=== PATIENT | female | born 1950 | race Caucasian/White ===

== ENCOUNTER 2017-04-10 10:11 | Inpatient (IN) ==
[2017-04-06 19:31] LABS: Appearance,Urine CLEAR; Bacteria,Urine 0 /hpf (0); Bilirubin,Urine NEG (NEG); Color,Urine YELLOW; Glucose,Urine (UA) NEGATIVE (NEG); Leukocyte Esterase,Urine 75 /uL (NEG); Mucus,Urine FEW /hpf (0); Nitrate,Urine NEG (NEG); Protein,Urine NEG (NEG); Specific Gravity,Urine 1.018 (1.000-1.035); Urine Blood 0.03 mg/dL (<0.03); Urine RBC 4 /hpf (0-1); Urine Squamous Epithelial Cell < 1 /hpf (0-4); Urine Transitional Epi Cells < 1 /hpf (0-2); Urine WBC 11 /hpf (0-4)
[2017-04-06 19:51] LABS: Blood Urea Nitrogen 21 mg/dl (8-23)
[2017-04-06 20:04] LABS: Basophils # (Auto) 0 K/mcL (0.0-0.3); Basophils % (Auto) 0.4 % (0.0-2.0); Eosinophils # (Auto) 0.3 K/mcL (0.0-0.7); Granulocytes % (Auto) 59.9 % (38.0-78.0); Lymphocytes # (Auto) 2.1 K/mcL (1.5-4.8); Lymphocytes % (Auto) 27.4 % (15.5-49.0); Mean Cell Volume 92.7 fL (80.0-100.0); Mean Corpuscular HGB Conc 34.5 g/dL (31.0-36.0); Monocytes # (Auto) 0.6 K/mcL (0.1-0.9); Monocytes % (Auto) 8.3 % (1.0-12.0); Platelet Count 341 K/mcL (140-440); RBC 4.39 M/mcL (4.00-5.20); Red Cell Distribution Width 12.3 % (11.5-14.5)
[~2017-04-10 10:11] MED LIST: ACETAMINOPHEN 500 MG TABLET PO SCH; CELECOXIB 200 MG CAPSULE PO SCH; PREGABALIN 75 MG CAPSULE PO SCH; ceFAZolin 1 GM VIAL IV SCH; oxyCODONE 10 MG TAB.ER.12H PO SCH
[2017-04-10 11:18] LABS: Appearance,Urine HAZY; Bilirubin,Urine NEG (NEG); Color,Urine YELLOW; Glucose,Urine (UA) NEGATIVE (NEG); Leukocyte Esterase,Urine NEG /uL (NEG); Nitrate,Urine NEG (NEG); Protein,Urine NEG (NEG); Specific Gravity,Urine 1.014 (1.000-1.035); Urine Blood NEG mg/dL (<0.03); Urobilinogen,Urine NEG (NEG)
[2017-04-10] MEDS ORDERED: LACTATED RINGERS 1,000 ML IV SCH (13:30)
[2017-04-10] MEDS ORDERED: BENZOCAINE/MENTHOL 1 LOZENGE PO PRN ×2 (13:30→14:17)
[2017-04-10] MEDS ORDERED: PROMETHAZINE 25 MG/ML VIAL IV PRN (13:30)
[2017-04-10] MEDS ORDERED: ONDANSETRON 4 MG/2 ML VIAL IV PRN ×2 (13:30→14:17)
[2017-04-10] MEDS ORDERED: fentaNYL 100 MCG/2 ML VIAL IV PRN (13:30)
[2017-04-10] MEDS ORDERED: METHOCARBAMOL 1,000 MG/10 ML VIAL IV PRN (13:30)
[2017-04-10] MEDS ORDERED: LACTATED RINGERS 250 ML IV PRN (13:30)
[2017-04-10] MEDS ORDERED: IPRATROPIUM/ALBUTEROL 3 ML AMPUL.NEB NEB PRN (13:30)
[2017-04-10] MEDS ORDERED: FLUMAZENIL 0.1 MG/ML ML IV PRN (13:30)
[2017-04-10] MEDS ORDERED: NALOXONE HCL 0.4 MG/ML VIAL IV PRN (13:30)
[2017-04-10] MEDS ORDERED: ACETAMINOPHEN 900 MG/90 ML BOTTLE IV ONE (13:30)
[2017-04-10] MEDS ORDERED: MEPERIDINE 25 MG/ML SYRINGE IV PRN (13:30)
[2017-04-10] MEDS ORDERED: GENTAMICIN SULFATE 800 MG/20 ML VIAL IR ONE (13:34)
--- NOTE | 2017-04-10 14:13 | Brief Operative Note ---
Date of procedure: 04/10/17 Pre-op diagnosis: left shoulder rca Post-op diagnosis: same Procedure: left reverse tsa and bicep tenodesis Grafts/Implants: Yes Anesthesia: GETA Complications: none Complications Description: 04/10/17 14:12 none Surgeon: Shant Corado Logistics Team Leader: Vishal Levin Estimated blood loss (cc): 20 Specimens Removed/Pathology: none sent Condition: stable Disposition: PACU
[2017-04-10] MEDS ORDERED: FLEETS ADULT ENEMA PR PRN (14:17)
[2017-04-10] MEDS ORDERED: BISACODYL 10 MG SUPP.RECT PR PRN (14:17)
[2017-04-10] MEDS ORDERED: ACETAMINOPHEN 325 MG TABLET PO PRN (14:17)
[2017-04-10] MEDS ORDERED: POLYETHYLENE GLYCOL 3350 17 GM PACKET PO PRN (14:17)
[2017-04-10] MEDS ORDERED: MAGNESIUM HYDROXIDE 30 ML ORAL.SUSP PO PRN (14:17)
[2017-04-10] MEDS ORDERED: oxyCODONE/APAP 5/325MG TABLET PO PRN (14:17)
[2017-04-10] MEDS ORDERED: KETOROLAC 15 MG/ML VIAL IV PRN (14:17)
[2017-04-10] MEDS ORDERED: TRANEXAMIC ACID 1,000 MG/10 ML VIAL IV SCH (14:17)
[2017-04-10] MEDS ORDERED: HYDROmorphone 2 MG/ML SYRINGE IV PRN (14:17)
[2017-04-10] MEDS ORDERED: BACLOFEN 10 MG TABLET PO PRN (14:20)
[2017-04-10] MEDS ORDERED: traMADol 50 MG TABLET PO PRN (14:20)
--- NOTE | 2017-04-10 15:02 | Operative Note ---
DATE OF OPERATION: 04/10/2017 PREOPERATIVE DIAGNOSIS: Left shoulder rotator cuff arthropathy. POSTOPERATIVE DIAGNOSES: Left shoulder rotator cuff arthropathy with the addition of biceps tendinopathy. PROCEDURE: Left reverse total shoulder with biceps tenodesis. SURGEON: Shant Corado M.D. ACCOUNTS RECEIVABLE ASSOCIATE: Vishal Levin PA-C. ANESTHESIA: General LMA anesthesia. COMPLICATIONS: None. FINDINGS: Large rotator cuff tear with some advanced arthritis. DESCRIPTION OF PROCEDURE: The patient was brought to the operating room and put to sleep with general LMA anesthesia. Once asleep, the patient had the left arm sterilely prepped and draped in the usual sterile fashion. Once this was done, we then had a time out, confirmed the operative site, placed Ioban over the skin, preop antibiotics and tranexamic acid given. Once this was done, we then made a deltopectoral approach to the shoulder and then exposed the anterior capsule. Once the retractor had been placed and we preserved the cephalic vein laterally, we released the subscap and biceps tendon. The biceps tendon was tenodesed to the pectoralis major with two [id number] FiberWire stitches. The subscap was released and moved medially. We dislocated the humeral head and performed a capsular release around the humeral side to about the 7 o'clock position. Then the glenoid neck cut was made at 30 degrees retroversion at the surgical neck region. Once this was done, we irrigated thoroughly, subluxed the head posteriorly and then performed a 360 degree capsular release and the biceps fully released inside the joint. We placed a pin centrally in the glenoid with 10 degrees of inclination. This was reamed to a size 32, a very small glenoid. Once reamed, some bleeding bone about 50% of the inferior surface was bleeding. We then placed one screw centrally, predrilling this, and this was a 28 mm central screw with a metaglene. A 32 mm glenosphere was put into place after locking the metaglene into place with a 32, 24, and 32 other additional locking screws. The 32 mm, 2 mm offset glenosphere was placed and locked into place. We irrigated thoroughly. We then prepared the humerus. This was reamed up to size 11. An 11 stem was placed. We trialed the components, a standard and 6 mm poly. The 6 was the best tension and range of motion without impingement. We irrigated thoroughly. We placed the poly, reduced this, very stable through range of motion. We did not repair the subscap because of impingement and tightness with elevation of the arm. We irrigated thoroughly and then closed the deltopectoral interval with 2-0 Vicryl, closed the skin with 2-0 Vicryl and adhesive closure. Sterile bandage applied. A Donjoy sling was fitted and given. No complications. RBDaija:bryan Job ID: [id number] Doc ID: [id number] Shant Corado MD
[2017-04-10] MEDS ORDERED: FLUMAZENIL 0.1 MG/ML ML IV ONE (15:41)
--- NOTE | 2017-04-10 15:54 | XRay Report ---
CLINICAL INFORMATION: Postsurgical follow-up TECHNIQUE: AP and Y views of the left shoulder COMPARISON: Preoperative evaluation dated 11/06/2012 FINDINGS: Previous left reverse shoulder arthroplasty. Alignment is anatomic. IMPRESSION: Status post left reverse shoulder arthroplasty Interpreted and Authenticated by: Benjamin Robb 04/10/17
[2017-04-10] MEDS: 0.45 % SODIUM CHLORIDE 1,000 ML IV SCH (16:25)
[2017-04-10] MEDS ORDERED: TRANEXAMIC ACID 1,000 MG/10 ML VIAL IV ONE (17:39)
[2017-04-10] MEDS ORDERED: DEXAMETHASONE 10 MG/ML VIAL IV ONE (17:39)
[2017-04-10] MEDS ORDERED: LIDOCAINE HCL/PF 100 MG/5 ML SYRINGE IV ONE (17:39)
[2017-04-10] MEDS ORDERED: PROPOFOL 200 MG/20 ML VIAL IV ONE (17:39)
[2017-04-10] MEDS ORDERED: ONDANSETRON 4 MG/2 ML VIAL IV ONE (17:39)
[2017-04-10] MEDS ORDERED: fentaNYL 250 MCG/5 ML VIAL IV ONE (17:39)
[2017-04-10] MEDS ORDERED: KETAMINE 100 MG/ML ML IV ONE (17:39)
[2017-04-10] MEDS ORDERED: SUCCINYLCHOLINE 20 MG/ML ML IV ONE (17:39)
[2017-04-10] MEDS ORDERED: METOPROLOL TARTRATE 5 MG/5 ML VIAL IV ONE (17:39)
[2017-04-10] MEDS ORDERED: MIDAZOLAM 2 MG/2 ML VIAL IV ONE (17:39)
[2017-04-10] MEDS ORDERED: QUEtiapine 25 MG TABLET PO SCH (21:00)
[2017-04-10] MEDS ORDERED: TEMAZEPAM 15 MG CAPSULE PO PRN (21:00)
[2017-04-10] MEDS ORDERED: DULoxetine 30 MG CAPSULE PO SCH (21:00)
[2017-04-10] MEDS ORDERED: MULTIVIT,THER IRON,CA,FA & MIN 1 TABLET PO SCH (21:00)
[2017-04-10] MEDS ORDERED: VITAMIN D3 5,000 UNIT CAPSULE PO SCH (21:00)
[2017-04-10] MEDS ORDERED: NORTRIPTYLINE 10 MG CAPSULE PO SCH (21:00)
[2017-04-10] MEDS ORDERED: VITAMIN B COMPLEX 1 CAPSULE PO SCH (21:00)
[2017-04-10] MEDS ORDERED: SENNOSIDES 1 TABLET PO SCH (21:00)
[2017-04-10] MEDS: 0.9 % SODIUM CHLORIDE 10 ML SYRINGE IV SCH (21:30)
[2017-04-10] MEDS: ceFAZolin 1 GM VIAL IV SCH (21:30)
[2017-04-10] MEDS: DOCUSATE SODIUM 100 MG CAPSULE PO SCH (22:54)
[2017-04-11] MEDS: 0.45 % SODIUM CHLORIDE 1,000 ML IV SCH ×2 (01:11→10:29)
[2017-04-11] MEDS: 0.9 % SODIUM CHLORIDE 10 ML SYRINGE IV SCH ×2 (05:09→14:50)
[2017-04-11] MEDS: ceFAZolin 1 GM VIAL IV SCH (05:10)
--- NOTE | 2017-04-11 07:49 | Orthopedic Progress Note ---
Subjective Patient information: Note initiated : 04/11/17 at 7:47 am Service Date, if different from initiated Date: [] Patient: Beth Pennington 67 y/o F admitted on 04/10/17 for Left Reverse Total Shoulder Arthroplasty. Chief Complaint: [Pt is stable this morning on post operative day 1 without any significant concerns or complaints. Patients vital signs have remained stable. Patients dressing is dry and is still completely numb from shoulder block. Patients 10 point ROS is otherwise negative. ] Objective Vital signs: Vital Signs Temp Pulse Resp BP Pulse Ox 04/11/17 07:16 96.9 F L 14 109/70 96 04/11/17 03:15 97.7 F 70 12 112/72 98 04/11/17 01:58 17 98 04/10/17 23:34 97.5 F 75 14 113/70 97 04/10/17 22:20 96 04/10/17 20:00 97 04/10/17 19:11 97.7 F 77 12 108/77 98 04/10/17 16:49 93 04/10/17 15:50 97.1 F 73 10 L 127/79 98 04/10/17 15:35 97.2 F 70 12 143/79 100 04/10/17 15:20 97.2 F 66 10 L 106/66 100 04/10/17 15:05 97.2 F 67 12 124/73 99 04/10/17 14:50 97.2 F 66 12 113/75 99 04/10/17 14:45 97.2 F 69 10 L 121/76 100 04/10/17 14:40 97.2 F 70 12 136/82 100 04/10/17 14:35 97.2 F 68 10 L 121/76 97 04/10/17 10:46 98.6 F 16 114/77 96 04/10/17 10:11 20 Intake and Output 04/10/17 04/11/17 04/11/17 21:59 05:59 13:59 Intake Total 4090 / 4090 1242 / 1242 Output Total 300 / 300 430 / 430 Balance 3790 / 3790 812 / 812 Intake: IV 90 / 90 877 / 877 Sodium Chloride 0.45% 1,000 ml 877 / 877 @ 100 mls/hr IV .Q10H [facility] Rx#: [id number] Oral 365 / 365 IV - Manual Only 4000 / 4000 Output: Void Amount 300 / 300 430 / 430 Other: # Voids 1 Weight 141 lb 8 oz Intake & Output: Intake & Output 04/10/17 04/11/17 04/11/17 21:59 05:59 13:59 Intake Total 4090 / 4090 1242 / 1242 Output Total 300 / 300 430 / 430 Balance 3790 / 3790 812 / 812 Weight 141 lb 8 oz Intake: IV 90 / 90 877 / 877 Sodium Chloride 0.45% 1,000 ml 877 / 877 @ 100 mls/hr IV .Q10H [facility] Rx#: [id number] Oral 365 / 365 IV - Manual Only 4000 / 4000 Output: Void Amount 300 / 300 430 / 430 Other: # Voids 1 Incision: Yes healing Incision clean and dry: Yes Dressing: Yes clean, Yes dry Weight bearing status: full - Labs CBC & BMP: 04/06/17 17:24 04/06/17 17:24 Labs: Orthopedic Labs 04/06/17 17:24 PT 12.8 INR 0.9 APTT 33 04/06/17 17:24 Hgb 14.0 Hct 40.7 Assessment and Plan (1) Hx of total shoulder replacement The patient has been educated regarding dressing care, Physical Therapy recommendations, home exercises, restrictions, and follow up appointments. The patient has had all necessary DME prescribed. The patient has remained stable during their hospital course. The patient was discharge with a stable exam. Leave Dermabond patch intact until followup Status: Acute
--- NOTE | 2017-04-11 07:52 | Discharge Summary ---
Ortho Discharge - TSA - Patient Instructions Diet: Regular Diet Activity: activity as tolerated, weight bearing as tolerated Total Shoulder Protocol: Leave immobilizer in place except for bathing and ROM. Abduction pillow. Continue to wear sling until seen by physician. Codman Pendulum : These exercises use momentum produced by your body to move your shoulder joint. Bend your knees and shift your weight to your front leg, then back, allowing your arm to swing in the same directions. Using the same technique, alternately shift your weight between your right and left legs, allowing your arm to swing from side to side. These exercises are also performed in counterclockwise and clockwise circular motions. Typically these exercises are performed several times per day, for a set number repetitions or minutes, such as 20 times in a row or 5 minutes at a time. Dressing Care: May shower in 2 days, Aquacel Ag - leave on for 5 days Patient Education: Shoulder Arthroplasty (DC) - Problem Maintenance (1) Hx of total shoulder replacement Status: Acute - Follow Up Plan Follow Up Appointments: Vishal Levin PA-C [Physician Director Of Safety And Security] - 03/27/18 11:20 am Disposition: Home, Self-Care Prognosis: Good Rehab Potential: Good I certify that the patient requires SNF services: No Overall status at discharge: patient is progressing back to baseline - Orders For Discharge Prescriptions: Docusate Sodium [Colace] 100 mg PO BID #60 cap oxyCODONE/APAP [Percocet 5-325 mg] 1 - 2 tab PO Q4HP PRN #75 tab PRN Reason: Pain Level 3-6
[2017-04-11] MEDS: DOCUSATE SODIUM 100 MG CAPSULE PO SCH (08:55)
--- NOTE | 2017-04-11 16:40 | General Surgery Progress Note ---
Subjective Narrative: Note initiated : 04/11/17 at 4:37 pm Service Date, if different from initiated Date: [] Patient: Beth Pennington 67 y/o F admitted on 04/10/17 for Left Reverse Total Shoulder Arthroplasty. Chief Complaint: [POD2] Asked by ortho service to eval persistent block. up until noon, pt unable to move hand, still numb. now able to use hand with good strength and has very little residual numbness. Objective Temp Pulse Resp BP Pulse Ox 98.7 F 76 14 95/59 96 04/11/17 12:09 04/11/17 08:01 04/11/17 12:09 04/11/17 12:09 04/11/17 12:09 - Additional Data Intake & Output - Last 24 hours: Intake & Output 04/09/17 04/10/17 04/11/17 04/12/17 05:59 05:59 05:59 05:59 Intake Total 5332 / 5332 240 / 240 Output Total 730 / 730 1100 / 1100 Balance 4602 / 4602 -860 / -860 Weight 141 lb 8 oz - General physical appearance no distress, no pain - Neurologic normal coordination, other (numbness of index, long and ring palmar fingertips as well as a patch overlying the dorsolateral forearm. 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 unable to assess biceps/triceps but both trigger at will.) - Labs 04/06/17 17:24 04/06/17 17:24 Assessment and Plan - Narrative A/P Narrative: Persistent/resolving normally interscalene brachial plexus peripheral nerve block to control postoperative pain. Pt reassured. Ortho service notified. - Time Spent With Patient Total time spent is greater than 50% in coordination of care (as documented) at patient's floor/unit and/or counseling patient: less than 15 minutes
== END 2017-04-11 17:40 | disposition home or self-care (01) | DRG 483 ==
LOC: MEDSUR 10:11
PROVIDERS: ADMIT Orthopaedic Surgery; ATTEND Orthopaedic Surgery